=== PATIENT | male | born 1990 | race Hispanic/Latino ===

== ENCOUNTER 2018-01-09 22:57 | Emergency (ER) | payer OTHER ==
[2018-01-09 23:24] VITALS: BP 110/73; PULSE 88; RESP 18; TEMP 98.6; O2SAT 99
--- NOTE | 2018-01-09 23:39 | ED PDOC ---
Arrival/HPI <EjKana - Last Filed: 01/10/18 00:20> - General Historian: Patient <Allie Garcia - Last Filed: 01/10/18 00:59> - General Chief Complaint: Abnormal Skin Integrity Time Seen by Provider: 01/09/18 23:22 - History of Present Illness Narrative History of Present Illness (Text): 01/09/18 23:31 27yo male who present with laceration to his right lower leg. Patient states he accidentally walked into a steak knife at work this evening, 0500pm. Notes his last tetanus booster is within the last 5years. She denies any other complaint. (Allie Gacria A) Past Medical History - Provider Review Nursing Documentation Reviewed: Yes - Psychiatric Hx Substance Use: No <Allie Garcia Sadia - Last Filed: 01/10/18 00:59> Family/Social History - Physician Review Nursing Documentation Reviewed: Yes Family/Social History: Unknown Family HX Smoking Status: y Hx Alcohol Use: No Hx Substance Use: No <Allie Garcia Sadia - Last Filed: 01/10/18 00:59> Allergies/Home Meds <Ej,Kana - Last Filed: 01/10/18 00:20> <Allie Garcia Sadia - Last Filed: 01/10/18 00:59> Allergies/Adverse Reactions: Allergies Latex, Natural Rubber Allergy (Verified 01/09/18 23:24) RASH Review of Systems - Physician Review All systems were reviewed & negative as marked: Yes - Review of Systems Constitutional: Normal Eyes: Normal ENT: Normal Respiratory: Normal Cardiovascular: Normal Gastrointestinal: Normal Genitourinary Male: Normal Musculoskeletal: Normal Skin: Laceration (right lower leg) Neurological: Normal Endocrine: Normal Hemo/Lymphatic: Normal Psychiatric: Normal <RadhaAllie Mccullough - Last Filed: 01/10/18 00:59> Physical Exam Vital Signs Reviewed: Yes Temperature: Afebrile Blood Pressure: Normal Pulse: Regular Respiratory Rate: Normal Appearance: Positive for: Well-Appearing, Non-Toxic, Comfortable Pain Distress: None Mental Status: Positive for: Alert and Oriented X 3 - Systems Exam Head: Present: Atraumatic, Normocephalic Pupils: Present: PERRL Extroacular Muscles: Present: EOMI Conjunctiva: Present: Normal Mouth: Present: Moist Mucous Membranes Neck: Present: Normal Range of Motion Respiratory/Chest: Present: Clear to Auscultation, Good Air Exchange. No: Respiratory Distress, Accessory Muscle Use Cardiovascular: Present: Regular Rate and Rhythm, Normal S1, S2. No: Murmurs Abdomen: No: Tenderness, Distention, Peritoneal Signs Back: Present: Normal Inspection Upper Extremity: Present: Normal Inspection. No: Cyanosis, Edema Lower Extremity: Present: Normal Inspection. No: Edema Neurological: Present: GCS=15, CN II-XII Intact, Speech Normal Skin: Present: Warm, Dry, Normal Color, Laceration (2.0cm linear laceration on proximal anterior lower leg). No: Rashes Psychiatric: Present: Alert, Oriented x 3, Normal Insight, Normal Concentration <Allie Garcia A - Last Filed: 01/10/18 00:59> Vital Signs Temp Pulse Resp BP Pulse Ox 01/09/18 23:21 98.6 F 88 18 110/73 99 Procedure: Wound Repair - Consent Obtained Consent obtained: Verbal - Performed by Performed by: Mid-level Provider - Indications Indication(s):: Laceration - Location Location:: Leg Shape:: Linear Dimensions Length cm: 2.0 - Anesthetic Technique Local/Regional Anesthetic:: Lidocaine 1% (5) - Debris Debris:: None - Irrigated Irrigated with ml of normal saline: 50 - Complexity Complexity:: Intermediate (2 layer) - Muscle repiar layer closed with Muscle repair layer closed with:: # (8), Size (5), Type (nylon), Technique ( interrupted), Wound well approximated, Abx ointment applied, Dressing applied, Tetanus up to date - Patient tolerated procedure Patient Tolerated Procedure:: Well <Allie Garcia - Last Filed: 01/10/18 00:59> - PA / [employer] MANAGER / Resident Statement BETTY has reviewed & agrees with the documentation as recorded. / has examined the patient and agrees with the treatment plan. <Kana Pagan - Last Filed: 01/10/18 00:20> Disposition/Present on Arrival <Kana Pagan - Last Filed: 01/10/18 00:20> - Present on Arrival Any Indicators Present on Arrival: No History of DVT/PE: No History of Uncontrolled Diabetes: No Urinary Catheter: No History of Decub. Ulcer: No History Surgical Site Infection Following: None - Disposition Have Diagnosis and Disposition been Completed?: Yes Disposition Time: 00:40 Patient Plan: Discharge <Allie Garcia - Last Filed: 01/10/18 00:59> - Disposition Diagnosis: Laceration Disposition: HOME/ ROUTINE Patient Problems: Current Active Problems Problem Status Onset Laceration Acute Condition: STABLE Discharge Instructions (ExitCare): Laceration Repair Additional Instructions: Keep wound clean and dry follow up with your doctor in 10days for suture removal Return to ED for redness, discharge, fever Prescriptions: Cephalexin [Keflex] 500 mg PO TID #21 capsule Referrals: [facility] [Outside] - Follow up with primary Forms: [employer] (Nepali)
[2018-01-10] MEDS ORDERED: Lidocaine 1% Inj (20ml) ONE (00:29)
== END 2018-01-10 00:51 | disposition home or self-care (01) ==
LOC: ED 22:57
DX: S81.811A Laceration without foreign body, right lower leg, initial encounter (principal); W26.0XXA Contact with knife, initial encounter; Y92.89 Other specified places as the place of occurrence of the external cause; Y99.0 Civilian activity done for income or pay